=== PATIENT | male | born 2000 | race Caucasian/White ===

== ENCOUNTER 2023-06-04 23:09 | Emergency (ER) | payer SELFPAY ==
[2023-06-04 23:10] VITALS: BP 150/89; PULSE 79; RESP 18; TEMP 36.8; O2SAT 97; BMI 28.7
[2023-06-04 23:25] VITALS: BP 150/89; PULSE 82; RESP 18; O2SAT 96
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
[2023-06-04 23:55] VITALS: BP 133/86; PULSE 87; RESP 16; O2SAT 97
[2023-06-05] MEDS: iohexol 350 mg/mL 500 mL Btl (per mL) IV (00:15)
[2023-06-05 00:30] VITALS: BP 154/96; PULSE 78; RESP 18; O2SAT 95
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
[2023-06-05] MEDS: ketorolac 30 mg/mL INJ IVP (00:50)
[2023-06-05] MEDS: HYDROcodone-acetaminophen 10-325 mg Tablet 1 TAB PO (00:50)
[2023-06-05 01:00] VITALS: BP 123/72; PULSE 69; RESP 18; O2SAT 99
[2023-06-05 01:22] LABS: Basophils # 0.1 10^3/uL (0.0-0.1); Basophils % 0.5 %; Eosinophils # 0.1 10^3/uL (0.0-0.8); Eosinophils % 0.6 %; Hematocrit 48.5 % (37-53); Lymphocytes # 3.7 10^3/uL (0.8-4.8); Lymphocytes % 30.6 %; Mean Corpuscular HGB Conc 33.8 g/dL (30-55); Mean Corpuscular Volume 88.7 fl (82-101); Mean Platelet Volume 9.5 fL (7.4-10.4); Monocytes # 0.9 10^3/uL (0.2-0.9); Monocytes % 7.8 %; Neutrophils # 7.15 10^3/uL (1.8-7.7); Neutrophils % 60.1 %; Nucleated Red Blood Cells % 0 %; Platelet Count 336 10^3/cmm (157-399); Red Blood Count 5.47 10^6/uL (3.85-5.65); Red Cell Distribution Width 11.5 % (12.1-15.1); White Blood Count 11.91 10^3/uL (3.29-11.43)
[2023-06-05 01:33] VITALS: BP 124/87; PULSE 75; RESP 16; O2SAT 94
[2023-06-05 01:44] LABS: Alanine Aminotransferase 35 U/L (0-41); Albumin Level 4.4 g/dL (3.5-5.2); Alkaline Phosphatase 78 U/L (40-130); Anion Gap 15.1 (5-19); Aspartate Amino Transferase 27 U/L (0-40); Blood Urea Nitrogen 11 mg/dL (6-20); Calcium 9.8 mg/dL (8.5-10.5); Carbon Dioxide 26 mmol/L (22-29); Chloride 102 mmol/L (98-107); Globulin 3.3 g/dL (1.3-4.6); Glomerular Filtration Rate 206.1 mL/min (90-130); Glucose 84 mg/dL (65-115); Osmolality Calculated 287 mOsm/kg (285-295); Potassium 4.1 mmol/L (3.5-5.1); Sodium 139 mmol/L (136-145); Total Bilirubin 0.6 mg/dL (0.15-1.2); Total Protein 7.7 g/dL (6.6-8.7)
[2023-06-05 02:06] VITALS: BP 138/80; PULSE 74; RESP 18; O2SAT 96
[2023-06-05 02:50] VITALS: BP 139/79; PULSE 78; RESP 16; O2SAT 94
[2023-06-05 03:17] VITALS: BP 118/55; PULSE 75; RESP 18; O2SAT 96
== END 2023-06-05 03:18 | disposition home or self-care (01) ==
PROVIDERS: Emergency Provider Internal Medicine
DX: R10.84 Generalized abdominal pain (principal); M54.50 Low back pain, unspecified; V89.2XXA Person injured in unspecified motor-vehicle accident, traffic, initial encounter
CPT/HCPCS: 36415; 70450; 71260; 72125; 73630; 74177; 80053; 85025; 96374; 99285; J1885; Q9967

== ENCOUNTER → 2024-08-21 10:44 | Outpatient (BNVA) | payer SELFPAY | PROVIDERS: Visit Provider Family Medicine | DX: S69.91XA Unspecified injury of right wrist, hand and finger(s), initial encounter (principal) | CPT/HCPCS: 73110; 73130 ==

== ENCOUNTER 2024-10-17 22:30 | Emergency (ER) | payer SELFPAY ==
[2024-10-17 22:43] VITALS: BP 130/81; PULSE 96; RESP 16; TEMP 36.8; O2SAT 99; BMI 31.5
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
[2024-10-18 00:12] VITALS: BP 127/74; PULSE 76; RESP 16; O2SAT 97
[2024-10-18 01:02] VITALS: BP 141/72; PULSE 78; RESP 16; O2SAT 97
[2024-10-18 01:42] LABS: Basophils # 0.1 10^3/uL (0.0-0.1); Basophils % 0.5 %; Eosinophils # 0.1 10^3/uL (0.0-0.8); Eosinophils % 1.1 %; Hematocrit 43.1 % (37-53); Lymphocytes # 3.1 10^3/uL (0.8-4.8); Mean Corpuscular HGB Conc 33.9 g/dL (30-55); Mean Corpuscular Hemoglobin 30.7 pg (27-33); Mean Corpuscular Volume 90.5 fl (82-101); Mean Platelet Volume 9.6 fL (7.4-10.4); Monocytes # 0.7 10^3/uL (0.2-0.9); Monocytes % 6.6 %; Neutrophils # 6.64 10^3/uL (1.8-7.7); Neutrophils % 62.2 %; Nucleated Red Blood Cells % 0 %; Platelet Count 277 10^3/cmm (157-399); Red Blood Count 4.76 10^6/uL (3.85-5.65); Red Cell Distribution Width 11.7 % (12.1-15.1); White Blood Count 10.66 10^3/uL (3.29-11.43)
[2024-10-18 02:04] LABS: INR 0.97 (0.8-1.2); Partial Thromboplastin Time 29.1 SECONDS (23.9-36.7)
[2024-10-18 02:11] VITALS: BP 142/73; PULSE 65; O2SAT 91
== END 2024-10-18 02:12 | disposition home or self-care (01) ==
PROVIDERS: Emergency Provider General Practice
DX: M79.605 Pain in left leg (principal); W01.0XXA Fall on same level from slipping, tripping and stumbling without subsequent striking against object, initial encounter
CPT/HCPCS: 36415; 73552; 73562; 85025; 85610; 85730; 99284